=== PATIENT | male | born 1950 | race African-American/Black ===

== ENCOUNTER 2018-10-09 08:27 | Day surgery (SDC) | payer OTHER, MEDICARE ==
[~2018-10-09 08:27] MED LIST: PROPOFOL INJ 200 MG/20 ML VIAL IV ONE
[2018-10-09 10:54] VITALS: BP 133/67
--- NOTE | 2018-10-09 14:44 | Operative Report ---
Operative Report DATE OF SURGERY: 10/09/18 Operative Report: The risks benefits and alternatives of the procedure explained to the patient in detail and informed consent is obtained.A GIF Olympus video scope was inserted into the patient's mouth and hypopharynx, the esophagus is identified intubated and insufflated, the scope was then advanced through the esophagus stomach and duodenum, retroflexion maneuver is done, the esophagus stomach and first and second portions of the duodenum examined. PREOPERATIVE DIAGNOSIS: Gastroesophageal reflux disease POSTOPERATIVE DIAGNOSIS: Polyp noted in the duodenal bulb is removed via snare polypectomy. Gastritis status post biopsy rule out Helicobacter pylori OPERATION: EGD with snare polypectomy and biopsy SURGEON: GABBIE SCHROEDER ANESTHESIA: LMAC TISSUE REMOVED OR ALTERED: As noted above. COMPLICATIONS: None. ESTIMATED BLOOD LOSS: None. INTRAOPERATIVE FINDINGS: As noted above. PROCEDURE: Patient tolerated the procedure well. No immediate postprocedure complications are noted. Patient is discharged in good condition. Discharge date 10/09/2018. Discharge diet: Regular. Discharge activity: Regular. 2 to 3-week follow-up to discuss findings. Patient is instructed to call the office or proceed to the emergency room should there be any further questions. Wait on the pathology.
== END 2018-10-09 10:50 | disposition home or self-care (01) ==
LOC: END 08:27
PROVIDERS: ATTEND Internal Medicine Gastroenterology
DX: K29.50 Unspecified chronic gastritis without bleeding (principal); K57.30 Diverticulosis of large intestine without perforation or abscess without bleeding; K21.9 Gastro-esophageal reflux disease without esophagitis; K31.7 Polyp of stomach and duodenum; R01.1 Cardiac murmur, unspecified; E11.9 Type 2 diabetes mellitus without complications; Z85.46 Personal history of malignant neoplasm of prostate; Z86.73 Personal history of transient ischemic attack (TIA), and cerebral infarction without residual deficits; Z13.89 Encounter for screening for other disorder; Z87.891 Personal history of nicotine dependence
CPT/HCPCS: 43239; 43251; 82962; 88342 ×2; 88305 ×2; 00731; J2704; 731